=== PATIENT | male | born 1985 | race African-American/Black ===

== ENCOUNTER 2022-08-10 23:11 | Emergency (ER) | payer OTHER ==
[~2022-08-10] VITALS: Ht 180.3 cm; Wt 136.1 kg
[~2022-08-10 23:11] MED LIST: FLEXERIL5 MG PO; VOLTAREN50 M1 PO
[2022-08-10] MEDS ORDERED: VIBRA-TAB100 MG PO (23:27)
[2022-08-10] MEDS ORDERED: FLAGYL 375375 MG PO (23:27)
[2022-08-10 23:53] LABS: BILIRUBIN Negative (Negative); BLOOD Negative (Negative); CLARITY Clear (Clear); COLOR Yellow (Yellow); GLUCOSE 1+ (Negative); KETONE Trace (Negative); LEUKO ESTERASE 2+ (Negative); NITRITE Negative (Negative); SPECIFIC GRAVITY >= 1.030 (1.001-1.030)
[2022-08-11 00:04] LABS: WBC 31-40 wbc/hpf (0-5)
== END 2022-08-10 23:52 | disposition home or self-care (01) ==
LOC: ED 23:11
PROVIDERS: Emergency Medicine
DX: R31.9 Hematuria, unspecified (principal); Z20.2 Contact with and (suspected) exposure to infections with a predominantly sexual mode of transmission